=== PATIENT | male | born 1945 | race Caucasian/White ===

== ENCOUNTER 2017-11-12 14:20 | Outpatient (CLI) | payer MEDICARE, OTHER ==
--- NOTE | 2017-11-12 15:44 | MRI ---
MRI CERVICAL SPINE WITHOUT IV CONTRAST: Date: 11-12-17 History: Cervical spondylosis, neck pain with pain radiating to right shoulder for 25 years. Pain is getting worse. Comparison: 12-12-15 FINDINGS: There is a mucous retention cyst present in the left maxillary antrum. There does appear to be mild volume loss involving the visualized cerebellar hemispheres. Cervical me dullary junction is normal in appearance. C2-3: There is a broad based disc osteophyte complex with greater central disc protrusion. This narro ws the ventral subarachnoid space similar to the prior exam, but the neural foramina are patent. Ther e are prominent facet degenerative changes again, greater on the right, with fluid signal intensity s een within the right sided facet joint. C3-4: There is a broad based disc osteophyte complex with central disc protrusion. This narrows the v entral subarachnoid space and does result in flattening of the anterior aspect of the spinal cord. Ag ain noted is a focus of increased T2 weighted signal intensity in the right aspect of the spinal cord , probably related to focal area of myelomalacia, also present on the prior exam. There are severe fa cet hypertrophic changes bilaterally, also noted on the prior study. These findings again result in n arrowing of the central spinal canal as well as moderate bilateral neural foraminal narrowing, greate r on the right. C4-5: There is increased T2 weighted signal intensity seen in the intervertebral disc at the C4-5 lev el which was also present on the prior exam and likely related to disc degenerative changes. There ar e prominent facet hypertrophic changes again noted at this level with mild disc osteophyte complex pr esent. There is mild effacement of the ventral subarachnoid space without significant narrowing of th e central spinal canal. The neural foramina are patent. C5-6: Broad based disc osteophyte complex is again seen. There is severe left sided facet hypertrophi c changes noted. There is narrowing of the ventral subarachnoid space with slight flattening of the a nterior aspect of the spinal cord but there is normal signal intensity in the spinal cord at this lev el. The neural foramina do appear patent at this level. C6-7: There is a broad based disc osteophyte complex resulting in mild generalized narrowing of the c entral spinal canal. There is mild flattening of the anterior aspect of the cord, but normal signal i ntensity is present in the spinal cord at this level. Again noted are facet hypertrophic changes. Fin dings result in moderate to severe right and moderate left sided neural foraminal narrowing. C7-T1: There is minimal disc bulge present at this level, but there is no narrowing of the central sp inal canal. The neural foramina are patent. T1-2: There is minimal disc osteophyte complex noted on the sagittal imaging. This does flatten the v entral subarachnoid space without significant narrowing of the central spinal canal. Neural foramina are incompletely imaged on axial images but are probably patent. IMPRESSION: 1. Multilevel degenerative changes in the cervical spine not significantly progressed when compared t o the prior exam. Again noted is moderate narrowing of the central spinal canal at the C3-4 level wit h findings suggesting myelomalacia within the spinal cord at this level. 2. Additional levels of foraminal narrowing as described above with prominent facet hypertrophic shanks ges at multiple levels similar to prior study. POS: CLAIRE
--- NOTE | 2017-11-12 16:07 | MRI ---
MRI OF LUMBAR SPINE WITHOUT IV CONTRAST: 11/12/17 HISTORY: Lumbar spondylosis. Patient has had low back pain for 25 years. Pain is now getting worse. FINDINGS: There are subcentimeter too small to characterize increased T2 weighted signal intensity lesions with in the right kidney. There is incomplete visualization of a larger increased T2 weighted signal inte nsity lesion in the mid portion left kidney and only the most medial margin of this cystic lesion is visualized. Prior CT examination on 12/06/16 demonstrated a renal cyst in this location. The remainder of the retroperitoneal structures demonstrate a normal MRI appearance. The conus medullaris is normal in appearance and terminates at the T12-L1 level. Normal signal intensity is demonstrated in the bone marrow. There is decreased signal intensity withi n the L5-S1 intervertebral disc space. Prior CT exam demonstrated fusion of the L5 and S1 vertebral b odies. L1-2 level: There is a mild broad based disc osteophyte complex with mild facet hypertrophic changes. The findings result in mild narrowing of the central spinal canal. The neural foramina at this level are patent. L2-3 level: There is loss of intervertebral disc height. There is slight retrolisthesis of L2 on L3. There is a mild broad based osteophyte complex present. There is mild narrowing of the central spinal anal with only mild encroachment on the inferior aspect of each neural foramen. L3-4 level: There is a mild broad based disc osteophyte complex noted. Prominent facet hypertrophic c hanges are present on the right and to a lesser degree on the left. Findings result in Mild narrowing of the central spinal canal including mild bilateral neural foraminal narrowing. L4-5 level: There is a broad based disc osteophyte complex with prominent facet hypertrophic changes. Fluid signal intensity is seen within the facet joints bilaterally. There is moderate to severe bila teral neural foraminal narrowing greater on the right. There is mild narrowing of the central spinal canal. L5-S1 level: There is posterior osteophyte formation and facet hypertrophic changes at this level. Fi ndings result in mild bilateral neural foraminal narrowing, but the degree of neural foraminal narrow ing approaches moderate in severity. Central spinal canal is patent. There are prominent facet hypert rophic changes noted. IMPRESSION: 1. Multilevel degenerative changes in the lumbar spine as described above. 2. Subcentimeter difficult to characterize signal hyperintensities in the right kidney also seen on prior MRI in 2017 with incomplete visualization of a larger increased signal intensity cystic les ion mid portion left kidney shown to represent a cyst on prior study. In addition, there are parapelv ic cysts on the left. POS: CLAIRE
== END 2017-11-12 14:21 | disposition home or self-care (01) ==
LOC: TBSIIMAG 14:20
PROVIDERS: ATTEND Anesthesiology Pain Medicine
DX: M47.892 Other spondylosis, cervical region (principal); M47.896 Other spondylosis, lumbar region; N28.1 Cyst of kidney, acquired; M48.02 Spinal stenosis, cervical region; M99.81 Other biomechanical lesions of cervical region; M50.13 Cervical disc disorder with radiculopathy, cervicothoracic region; M50.23 Other cervical disc displacement, cervicothoracic region
CPT/HCPCS: 72141; 72148

== ENCOUNTER 2018-03-15 13:29 | Outpatient (CLI) | payer MEDICARE, OTHER ==
--- NOTE | 2018-03-15 14:16 | RAD ---
CERVICAL SPINE RADIOGRAPHS: 03/15/2018 PROVIDED CLINICAL HISTORY: Postop. FINDINGS: Cervical alignment appears normal. Vertebral body heights appear preserved. Changes of ACDF are not ed at C3-C4 without evidence for hardware loosening or migration. Disk degenerative changes are seen at C5-C6 and C6-C7. No prevertebral soft tissue swelling apparent. The visualized lung apices appe ar clear. IMPRESSION: Postoperative and degenerative changes of the cervical spine. POS: CLAIRE
== END 2018-03-15 13:30 | disposition home or self-care (01) ==
LOC: TBSIIMAG 13:29
PROVIDERS: ATTEND Neurological Surgery
DX: M47.22 Other spondylosis with radiculopathy, cervical region (principal); Z98.890 Other specified postprocedural states
CPT/HCPCS: 72040

== ENCOUNTER 2018-04-01 13:40 | Outpatient (CLI) | payer OTHER | END 2018-04-01 13:41 | disposition home or self-care (01) | LOC: DTY/OP 13:40 | PROVIDERS: ATTEND Family Medicine | DX: R73.03 Prediabetes (principal) | CPT/HCPCS: 97802 ==